=== PATIENT | male | born 1945 | race Caucasian/White ===

== ENCOUNTER 2020-06-01 10:00 | Outpatient (RCR) | payer OTHER, SELFPAY ==
--- NOTE | 2020-04-24 12:57 | MHC.PT.EP ---
[facility] [place] Office [place] Office [place] Office [address] Hoda Juarez [address] [phone] F: [phone] F: [phone] F: [phone] F: [phone] Physical Therapy Plan of Care Date of Evaluation: 04/24/20 Date of Surgery: NA Diagnosis: Sciatica Assessment: Patient reporting R knee pain and weakness when walking causing his knee to give. He has had multiple falls the most recently about a week ago when he lost his balance when trying to close his car door (unsure if this has caused his pain). He reports some distal inner thigh pain that is sharp, medial knee swelling, described as dull and is tender to touch and lateral and medial calf pain that is described as tingling. He reports that he used to have sciatica but reports that this has improved some and his knee weakness, pain and swelling is what is bothering him the most now. This feels very different than the sciatica. Assessment reveals pain that is ranging about a 6/10 at the worst and 0/10 when lying down, decreased RLE ROM and strength, impaired balance, gait and functional mobility. It appears he may be having symptoms of sciatica as well as knee pain that is a separate issue. He has decreased balance and multiple falls. He is a good candidate for skilled PT 2x/wk for 6wks based on functional mobility, symptoms and gross PMHx. Frequency and Duration: The patient will be seen 2x/wk for 6wks. Short Term Goals: I in HEP Patient will obtain full knee extension Patient will centralize gastroc symptoms Patient will demo proper functional squat form Nursing Home Goals: Patient will improve RLE strength to at least 4/5 Patient will report improvement in strength, reduced knee buckling Patient will report no new falls in a month Treatment Plan: Modalities to reduce pain, spasms and effusion. Manual therapy to restore motion and function. Therapeutic exercise to improve strength and flexibility. Neuromuscular re-education for posture and balance. Therapeutic activities to return to functional activities of daily living. Please sign and return to therapist. Thank you for your referral.
--- NOTE | 2020-06-01 10:45 | MHC.PT.DC ---
[facility] [place] Office [place] Office [place] Office [address] Hoda Juarez [address] [phone] F: [phone] F: [phone] F: [phone] F: [phone] Physical Therapy Discharge Report Diagnosis: Sciatica Date of Surgery: NA Date of Evaluation: 04/24/20 Date of Discharge: 06/01/20 Treatments to Date: 10 Cancellations to Date: 0 No Shows to Date: 0 Discharge Status: Achieved Goals Improved Function Independent with HEP Patient Elected to Stop Recommend MD Follow-up Discharge Summary: Patient continues to do well with PT, has a good program for home that he is independent in and feels comfortable with at home. He reports ready for DC today. Does well with balance work when challenged in the clinic. Continues to have quad weakness on the R and discussed further work up via MD for this with lean manufacturing engineer present. In general, he has had no falls, ambulates better and with a better safety awareness, demos improved strength and general ROM since starting PT. DC to HEP at this time. Educated to call office with concerns as needed. Electronically signed by: Sheryl Razo PT Please sign and return to therapist. Thank you for your referral.
== END 2020-06-01 10:59 | disposition home or self-care (01) ==
LOC: HO.PTCHIC 10:00
PROVIDERS: PCP Internal Medicine; Visit Provider Internal Medicine
DX: M54.30 Sciatica, unspecified side (principal)
CPT/HCPCS: 97110; 97112; 97162